=== PATIENT | male | born 1950 | race Two or more races ===

== ENCOUNTER 2025-01-10 20:26 | Emergency (ER) | payer MEDICARE, OTHER ==
[~2025-01-10] VITALS: Ht 188 cm; Wt 102.1 kg
[2025-01-10] MEDS ORDERED: NAPR-1192 PO (23:33)
[2025-01-10 23:58] VITALS: BP 144/80; TEMP 98.3; O2SAT 99
== END 2025-01-10 23:59 | disposition home or self-care (01) ==
LOC: ER 20:28
DX: M25.561 Pain in right knee (principal); I10 Essential (primary) hypertension; E78.5 Hyperlipidemia, unspecified; Z91.048 Other nonmedicinal substance allergy status
CPT/HCPCS: 73564-TC